=== PATIENT | male | born 1995 | race Caucasian/White ===

== ENCOUNTER 2018-10-29 13:32 | Emergency (ER) | payer OTHER ==
[~2018-10-29] VITALS: Ht 160 cm; Wt 57.0 kg
[2018-10-29 13:36] VITALS: BP 142/77
[2018-10-29] MEDS ORDERED: L.E.T SOLUTION TP ONE ×2 (14:00→14:26)
[2018-10-29] MEDS ORDERED: DIPH,PERTUSS(ACELL),TET VAC/PF 0.5 ML IM-VACC ONE ×2 (15:23→15:30)
== END 2018-10-29 15:34 | disposition home or self-care (01) ==
LOC: ED 15:06
DX: S61.512A Laceration without foreign body of left wrist, initial encounter (principal); F17.200 Nicotine dependence, unspecified, uncomplicated; W26.8XXA Contact with other sharp object(s), not elsewhere classified, initial encounter; Y93.89 Activity, other specified; Y92.009 Unspecified place in unspecified non-institutional (private) residence as the place of occurrence of the external cause; Y99.8 Other external cause status
CPT/HCPCS: 12001; 90471; 90715

== ENCOUNTER 2020-10-07 17:35 | Emergency (ER) | payer OTHER ==
[~2020-10-07] VITALS: Ht 160 cm; Wt 58.8 kg
[2020-10-07 18:33] VITALS: BP 132/87
[2020-10-07] MEDS ORDERED: IBUPROFEN 600 MG TABLET ONE (18:38)
[2020-10-07] MEDS ORDERED: IBUPROFEN 800 MG TABLET ONE (18:40)
--- NOTE | 2020-10-07 18:41 | NUR ---
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
--- NOTE | 2020-10-07 18:55 | NUR ---
pt to room from lobby
[2020-10-07] MEDS ORDERED: IBUPROFEN 800 MG TABLET PO ONE (19:00)
== END 2020-10-07 20:05 | disposition home or self-care (01) ==
LOC: ED 19:55
DX: S93.602A Unspecified sprain of left foot, initial encounter (principal); V00.131A Fall from skateboard, initial encounter; Y93.89 Activity, other specified; Y92.488 Other paved roadways as the place of occurrence of the external cause; Y99.8 Other external cause status
CPT/HCPCS: 99283